=== PATIENT | male | born 1950 | race Caucasian/White ===

== ENCOUNTER 2024-02-19 11:51 | Emergency (ER) | payer MEDICARE, BC, SELFPAY ==
[2024-02-19 12:09] VITALS: BP 141/72; PULSE 60; RESP 20; TEMP 36.4; O2SAT 97; BMI 26.7
--- NOTE | 2024-02-19 12:31 | ED_ITS ---
HPI - Fall General Chief Complaint: Fall Stated Complaint: FALL, UPPER EXTRMITY INJURY RIGHT Time Seen by Provider: 02/19/24 12:31 Source: patient Mode of arrival: walk-in Limitations: no limitations History of Present Illness HPI Narrative: This patient is here with his for evaluation of a fall. He said he went outside to go to his vehicle and fell somewhere between the sidewalk and the brick house. He thinks he may have had a short loss of consciousness. He did get up on his own accord and walked back in. His 's and he has not been vomiting or acting confused or dazed in any way. He is on blood thinners, Eliquis, for atrial fibrillation. He has most of his discomfort is in the right shoulder and his neck area. He has not had previous neck or back surgery or shoulder surgery. No loss of feeling. No obvious deformity. He has minor abrasions to the rest extremities. We will inquire about his tetanus status. Related Data Allergies Allergy/AdvReac Type Severity Reaction Status Date / Time No Known Drug Allergies Allergy Verified 02/19/24 12:05 Exam Narrative Exam Narrative: Very pleasant gentleman here with his . He is awake alert [place] x 3. GCS is 15. He is not repeating himself there is no slurring of his words there is no confusion. On HEENT examination he has got palpable tenderness over the posterior paracervical spine but not the bony landmarks. We did not do any range of motion testing. His calvarium shows no evidence of bony injury lacerations or contusions. His TMs are normal bilaterally with no evidence of hemotympanum. There is no CSF rhinorrhea Whalen sign raccoon sign is negative. 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 Otherwise his eye examination is normal. There is no tenderness to the sternum the upper clavicles or the back area. He has no paresis paresthesias or tingling to the extremities. He has got extreme minor abrasions to the hands. No bony tenderness to the wrist or elbow only at the right shoulder was uncomfortable with any type of movement. There is no obvious deformity. Neurovascular examination to the upper and lower extremities is normal. Constitutional Vital Signs, click to edit/add: Last Vital Signs Temp 97.5 F L 02/19/24 12:09 Pulse 60 02/19/24 12:09 Resp 20 02/19/24 12:09 BP 141/72 02/19/24 12:09 Pulse Ox 97 02/19/24 12:09 O2 Del Method Room Air 02/19/24 12:09 Course Vital Signs Vital signs: Vital Signs Temperature 97.5 F L 02/19/24 12:09 Pulse Rate 60 02/19/24 12:09 Respiratory Rate 20 02/19/24 12:09 Blood Pressure 141/72 02/19/24 12:09 Pulse Oximetry 97 02/19/24 12:09 Oxygen Delivery Method Room Air 02/19/24 12:09 Temperature 97.5 F L 02/19/24 12:09 Pulse Rate 60 02/19/24 12:09 Respiratory Rate 20 02/19/24 12:09 Blood Pressure 141/72 02/19/24 12:09 Pulse Oximetry 97 02/19/24 12:09 Oxygen Delivery Method Room Air 02/19/24 12:09 MDM - Fall MDM Narrative Medical decision making narrative: Because he is on Eliquis and because the fall a CT scan of the head was done shows no acute abnormalities. His cervical spine CT imaging was also normal. Additionally, the x-ray of his right shoulder showed no bony abnormalities but he clearly has some soft tissue injury that will need to be followed up. Discharge Plan Discharge Stand Alone Forms: Portal Instructions Chief Complaint: Fall Clinical Impression: Acute cervical myofascial strain, Fall Patient Disposition: Home, Self-Care Time of Disposition Decision: 13:10 Print Language: Maltese Additional Instructions: Apply ice to any swollen bruised area. Return for any change in his condition. Wear sling for 2 or 3 days to the right shoulder and then have follow-up with primary care doctor or orthopedic Referrals: KEVEN REINOSO [Primary Care Provider] - 1 week
--- NOTE | 2024-02-19 12:32 | CT_ITS ---
The [place] [id number] Patient Name: MARYJANE LARA MRN: [facility]:[id number] date: 1950 Sex: M Assigned Patient Location: ER Current Patient Location: ED.MAIN Accession/Order Number: [id number] Exam Date: 02/19/2024 12:42 Report Date: 02/19/2024 14:21 At the request of: JUANA CASAREZ Procedure: CT cervical spine wo con CT CERVICAL SPINE WITHOUT CONTRAST, 02/19/2024. HISTORY: Fall. Neck pain. COMPARISON: None. TECHNIQUE: Noncontrast axial CT images obtained through the cervical spine. Reconstructions obtained in the sagittal and coronal planes. Dose reduction techniques were achieved by using automated exposure control and/or adjustment of mA and/or kV according to patient size and/or use of iterative reconstruction technique. FINDINGS: Alignment normal. Odontoid process is intact. The facet joints are intact. Vertebral body height is normal. No acute cervical spine fracture. No CT evidence of spinal cord compression. No paraspinal soft tissue swelling. No paraspinal mass. CT/CT cervical spine wo con IMPRESSION: No acute cervical spine fracture or traumatic subluxation. Electronically authenticated by: JUAN MEJIA Date: 02/19/2024 14:21
--- NOTE | 2024-02-19 12:32 | CT_ITS ---
The [address] [address] Patient Name: MARYJANE LARA MRN: [facility]:[id number] date: 1950 Sex: M Assigned Patient Location: ER Current Patient Location: [facility] Accession/Order Number: [id number] Exam Date: 02/19/2024 12:42 Report Date: 02/19/2024 14:21 At the request of: JUANA CASAREZ Procedure: CT head/brain wo con CT HEAD WITHOUT CONTRAST, 02/19/2024. HISTORY: Fall. Patient is on blood thinners. Head injury. COMPARISON: None. TECHNIQUE: Noncontrast axial CT images obtained through the head. Reconstructions obtained in the sagittal and coronal planes. Dose reduction techniques were achieved by using automated exposure control and/or adjustment of mA and/or kV according to patient size and/or use of iterative reconstruction technique. FINDINGS: The paranasal sinuses are clear. Mastoid air cells and middle ear cavities clear. No fracture. Prior cataract surgery. Extracranial soft tissue structures are unremarkable. No hydrocephalus. No extra axial fluid collection. No mass effect. No shift of midline. No acute intracranial hemorrhage. No masses. Mendosa matter and white matter differentiation is intact. CT/CT head/brain wo con IMPRESSION: No acute findings. No intracranial hemorrhage. No skull fracture. Electronically authenticated by: JUAN MEJIA Date: 02/19/2024 14:21
--- NOTE | 2024-02-19 12:33 | XR_ITS ---
The [place] [id number] Patient Name: MARYJANE LARA MRN: [facility]:[id number] date: 1950 Sex: M Assigned Patient Location: ER Current Patient Location: ER Accession/Order Number: [id number] Exam Date: 02/19/2024 12:42 Report Date: 02/19/2024 13:02 At the request of: JUANA CASAREZ Procedure: XR shoulder RT min 2V PROCEDURE: XR shoulder RT min 2V HISTORY: Fall ; right shoulder and neck pain after falling COMPARISON: None. FINDINGS: BONES:No fracture, dislocation, bone lesion. Narrowing of the acromioclavicular joint with small degenerative osteophytes. Unremarkable humeral head and glenoid. SOFT TISSUES:No visible soft tissue swelling. EFFUSION:None visible. OTHER: Negative. XR/XR shoulder RT min 2V IMPRESSION: 1. No acute bone abnormality. 2. Mild degenerative changes of the right shoulder. Electronically authenticated by: ROSARIO SALAZAR Date: 02/19/2024 13:02
[2024-02-19] MEDS: ADACEL DIPH,PERTUSS(ACELL),TET VAC/PF 0.5 ML ADULT SYRINGE IM (13:01)
== END 2024-02-19 13:26 | disposition home or self-care (01) ==
PROVIDERS: Emergency Provider Emergency Medicine Emergency Medical Services; Family Provider Family Medicine; PCP Family Medicine
DX: S16.1XXA Strain of muscle, fascia and tendon at neck level, initial encounter (principal); I48.91 Unspecified atrial fibrillation; Z79.01 Long term (current) use of anticoagulants; S60.519A Abrasion of unspecified hand, initial encounter; W18.39XA Other fall on same level, initial encounter; Z23 Encounter for immunization
CPT/HCPCS: 70450; 72125; 73030; 90471; 90715; 99285

== ENCOUNTER 2024-08-10 15:40 | Inpatient (IN) | payer MEDICARE, BC, SELFPAY ==
[2024-08-10] VITALS (14 sets, daily range): BP systolic 133–171; BP diastolic 71–99; PULSE 60–109; TEMP 36.4–36.7; O2SAT 93–98; BMI 26.7; BMI 26.4
--- NOTE | 2024-08-10 15:57 | ED_ITS ---
HPI HPI - General Adult General Chief complaint: Back Pain/Injury Stated complaint: BACK PAIN Time Seen by Provider: 08/10/24 15:56 Source: patient Mode of arrival: Wheelchair Limitations: no limitations History of Present Illness HPI narrative: Patient is a 74-year-old male who is presenting to the ER with chief complaint of pain to the right lower back above his right pelvis. Patient also has having some pain to the right hip. Patient also states that he has been having weakness to his right leg. Patient is been having a harder time walking, has been having symptoms possibly suggestive of right foot drop last few days. Patient states the pain to the right lower back and right hip started before the weakness, but the weakness has been persistent for the last 3 days and the pain will come and go only with twisting turning and lumbar flexion extension. No loss of urine or bowels in his parents. Patient has no strokelike history. Patient does take Eliquis. Patient does have multiple medications that he does take. Patient's is at bedside. Patient feels like his abdomen has been bloated in the last several days, no difficulty with diarrhea or constipation. Patient has had recent testing on his abdomen is well ordered by his PCP. Patient's PCP is Dr. Tan. 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 Patient also has been having intermittent headaches for the past 3 to 4 months. Patient states his headaches are different than his normal headache. He does not have a headache today. Patient states his headaches have been behind his right eye with pressure. Again, he does not have a headache today. All systems are negative except as noted/marked. All systems reviewed and otherwise negative. Nurses note and vital signs reviewed and patient is not hypoxic. General: The patient appears well and in no apparent distress. Patient is resting comfortably on cart. Patient is not toxic, lethargic, or listless Skin: Warm, dry, no pallor noted. There is no rash noted. No petechiae, purpura. Head: Normocephalic, atraumatic; patient has full range of motion of cervical spine no difficulty. No tenderness to palpation midline or paracervical. Eye: Normal conjunctiva, no drainage, EOMI. PERRL Ears, Nose, Mouth, and Throat: oral mucosa is moist. Nares patent. Mouth without vesicles. Cardiovascular: Regular Rate and Rhythm, no murmur, gallop, rub Respiratory: Patient is in no distress, no accessory muscle use, lungs are clear to auscultation, no wheezing, rales or rhonchi Back: Patient does have moderate tenderness palpation to the right SI joint, right lower paralumbar soft tissue, negative right piriformis muscle tenderness to palpation. Negative straight leg raising test on the right and left. No signs of saddle anesthesia or cauda equina. non-tender, no CVA tenderness bilaterally to percussion. No CT LS midline pain GI: no tenderness to palpation, no masses appreciated. No rebound, guarding, or rigidity noted. No distention Musculoskeletal: Patient has full range of motion of all of the extremities with notable weakness to the right lower extremity compared to the left. Patient has a mild pronator drift of the right leg compared to the left. Patient does have weakness with that is noticeably different compared to the left leg. Patient has decreased sensation to the right lower extremity as well distal from the right knee compared to left leg. Patient has no other sensation deficits. Normal dorsalis pedis pulse bilateral. Patient appears to have equal bilateral patellar and Achilles reflexes bilateral. Extension flexion of the right knee when patient is sitting on the side of the bed, no motor, sensory, or focal neurological deficits. I did have patient's stand up at the side of the bed, patient is having a harder time standing up on his tippy toes on the right leg compared to the left. Patient does have weaker plantar dorsiflexion on the right foot compared to left. Neurological: A&O x4, normal speech, NIH 2, decrease sensation to right lower extremity distal to the right knee of the right leg compared to left. Minimal pronator drift to right leg. Psychiatric: Cooperative Related Data Home Medications ?Medication ?Instructions ?Recorded ?Confirmed apixaban 5 mg tablet (Eliquis) mg 08/10/24 aspirin 81 mg capsule 81 mg PO DAILY 08/10/24 08/10/24 atogepant 60 mg tablet (Qulipta) 60 mg PO DAILY 08/10/24 08/10/24 galcanezumab-gnlm 120 mg/mL mg subcut 08/10/24 subcutaneous syringe (Emgality) olmesartan 40 mg tablet mg 08/10/24 oxcarbazepine 150 mg tablet mg 08/10/24 ropinirole 1 mg tablet mg 08/10/24 sumatriptan succinate 100 mg tablet mg PO 08/10/24 tamsulosin 0.4 mg capsule mg PO 08/10/24 ubrogepant 100 mg tablet (Ubrelvy) mg 08/10/24 Allergies Allergy/AdvReac Type Severity Reaction Status Date / Time No Known Drug Allergies Allergy Verified 08/10/24 15:52 Opioid HPI Opioid Management Most Recent Opioid Data: Last Pain Scale 8 08/10/24 20:05 PFSH PFSH Social History Little interest or pleasure in doing things: not at all Feeling down, depressed, or hopeless: not at all Exam Constitutional Vital Signs, click to edit/add: Last Vital Signs Temp 98.1 F 08/10/24 15:52 Pulse 70 08/10/24 19:31 Resp 20 08/10/24 19:31 BP 139/81 08/10/24 19:31 Pulse Ox 98 08/10/24 19:31 O2 Del Method Room Air 08/10/24 15:52 Course Vital Signs Vital signs: Vital Signs Temperature 98.1 F 08/10/24 15:52 Pulse Rate 91 H 08/10/24 15:52 Respiratory Rate 18 08/10/24 15:52 Blood Pressure 164/99 H 08/10/24 15:52 Pulse Oximetry 96 08/10/24 15:52 Oxygen Delivery Method Room Air 08/10/24 15:52 Temperature 98.1 F 08/10/24 15:52 Pulse Rate 70 08/10/24 19:31 Respiratory Rate 20 08/10/24 19:31 Blood Pressure 139/81 08/10/24 19:31 Pulse Oximetry 98 08/10/24 19:31 Oxygen Delivery Method Room Air 08/10/24 15:52 Medical Decision Making MDM Narrative Medical decision making narrative: Patient stated the pain to the right lower back, SI joint on the right, and right hip started before the weakness, but the weakness has been persistent for 3 days, the pain is coming going with movement. After shared decision making and lengthy conversation with patient and his , patient will pursue stroke workup, CT of the head along with lumbar sacral spine, and also be admitted to the hospital for further evaluation. Patient does take his Eliquis daily. CT of the brain, CT of the head neck showed no specific findings and no large vessel occlusion. CT of the lumbar sacral spine shows multiple abnormalities. 1700 I went back in to explain the workup and the process again to patient and his , explaining that the continuous right leg weakness is possible to be nerve related from the lower back, but also is stroke until proven otherwise as well. Education on performing CT of the brain of the head and lower lumbar sacral spine at this time because I do not have MRI capabilities at this time was discussed to patient and his , along with symptoms ongoing for the past 3 days. Patient's was initially confused after initial lengthy discussion of why we are performing a stroke workup. This was discussed again. They were very thankful and understand the workup in process and agree with it. 193 I have spoken to Dr Marcial, I presented patient's case, also recommending giving Decadron IV 10 mg. He is aware of the CT of the lumbar spine readings. Also aware of the stroke workup and the testing of the brain, CT of the head neck that was done as well. He agrees that patient should be transferred over to [facility] for reevaluation and additional workup. He stated the patient will need MRI of his lumbar sacral spine for further evaluation. He is aware of the decrease sensation distal to the right knee, and the difficulty with knee extension and flexion weakness in the right leg along with weakness to dorsal plantarflexion of the right leg and also difficulty standing up on his tippy toes with some possible foot drop to the right leg for the past few days. 193 we have spoken to the [facility] nursing solid waste facility supervisor, they do not have any beds available. Nursing solid waste facility supervisor was also aware that we had spoken to the neurosurgeon, Dr. Marcial, and that he was recommending patient being admitted to medicine with neurosurgeon consultation. Patient will be on a wait list and transfer tomorrow when a bed opens up. 194 I have spoken to Olivia nurse practitioner for the hospitalist group at [facility]. Patient presentation has been given to her initially before I spoken to the neurosurgeon at [facility]. She is aware of admission, need for MRI in the morning, need for transfer to the neurosurgery who is already accepted the patient in consultation, Dr. Marcial who was taking the phone calls per Dr. Erickson who is a neurosurgeon who performed surgery 2 years ago at [facility]. Olivia WHITMORE is accepting admission. She is aware of giving Decadron patient is also given something for pain as well prior to admission. Patient and are extremely thankful and happy with care. IMPRESSION: At L3-L4, a probable left foraminal disc protrusion superimposed on disc bulge results in moderate to severe stenosis of the left L4-5 neural foramen. At L4-L5, prior laminectomy. Moderate to severe stenosis of the left lateral recess secondary to disc bulge, facet hypertrophy and ligamentum flavum thickening. Moderate stenosis of L4-5 neural foramina secondary to slightly decreased disc height, discovertebral complex and mild facet hypertrophy. At L5-S1, mild left and severe right facet arthropathy with mild stenosis of L5-S1 neural foramina. Critical care time 35 minutes exclusive from separate billable procedures that were performed. The following was considered in the determination of critical care but not limited to the level of medical decision making, intensive cardiac and/or respiratory monitoring, frequent vital sign monitoring, evaluation of laboratory studies, evaluation of radiographic studies, oxygen monitoring, and constant monitoring and speaking to family at bedside Lab Data Labs: Lab Results 08/10/24 08/10/24 Range/Units 16:39 16:49 WBC 10.2 (4.0-11.0) 10^3/uL RBC 5.10 (4.70-6.10) 10^6/uL Hgb 15.5 (14.0-18.0) g/dL Hct 48.0 (42.0-54.0) % MCV 94.1 H (80.0-94.0) fL MCH 30.4 (25.9-34.0) pg MCHC 32.3 (29.9-35.2) g/dL RDW 14.4 (11.0-15.0) % Plt Count 285 (150-450) 10^3/uL MPV 10.3 (9.5-13.5) fL Neut % (Auto) 75.2 H (43.0-75.0) % Lymph % (Auto) 15.4 L (20.5-60.0) % Swain % (Auto) 7.5 (1.7-12.0) % Eos % (Auto) 1.4 (0.9-7.0) % Baso % (Auto) 0.3 (0.2-2.0) % Neut # (Auto) 7.7 H (1.4-6.5) 10^3/uL Lymph # (Auto) 1.6 (1.2-3.8) 10^3/uL Swain # (Auto) 0.8 (0.3-0.8) 10^3/uL Eos # (Auto) 0.1 (0.0-0.7) 10^3/uL Baso # (Auto) 0.0 (0.0-0.1) 10^3/uL Abs Immat Gran (auto) 0.02 (0.00-0.03) 10^3/uL Imm/Tot Granulo (auto) 0.2 (0.0-0.5) % PT 10.2 (9.0-11.6) sec INR 0.96 APTT 33.6 (22.3-36.2) sec Sodium 140 (136-145) mmol/L Potassium 3.5 (3.5-5.1) mmol/L Chloride 105 (98-107) mmol/L Carbon Dioxide 30.3 (21.0-32.0) mmol/L Anion Gap 8.2 BUN 23.0 H (7.0-18.0) mg/dL Creatinine 0.94 (0.70-1.30) mg/dL Est GFR ( Amer) >60 (>=60) Est GFR (Non-Af Amer) >60 (>=60) BUN/Creatinine Ratio 24.5 Glucose 111 H (74-106) mg/dL Calcium 9.6 (8.5-10.1) mg/dL Total Bilirubin 0.5 (0.2-1.0) mg/dL AST 28 (15-37) U/L ALT 37 (16-63) U/L Alkaline Phosphatase 99 (46-116) U/L Troponin I High Sens 15.5 (4.0-76.1) pg/mL Total Protein 7.1 (6.4-8.2) g/dL Albumin 3.7 (3.4-5.0) g/dL Globulin 3.4 g/dL Albumin/Globulin Ratio 1.1 POC Glucose 113 H (74-106) mg/dL ECG Data Attestation: I personally reviewed and interpreted this ECG as follows: (EKG interpretation. Normal sinus rhythm at 65 beats a minute. Left axis deviation. No acute ST elevation, no acute ectopy. QTc of 365.) Discharge Plan Discharge Chief Complaint: Back Pain/Injury Clinical Impression: Right leg weakness Patient Disposition: Admitted as Observation Time of Disposition Decision: 19:38 Condition: Serious
--- NOTE | 2024-08-10 16:32 | CT_ITS ---
[address] [address] Patient Name: MARYJANE LARA MRN: [facility]:[id number] date: 1950 Sex: M Assigned Patient Location: ER Current Patient Location: Accession/Order Number: [id number] Exam Date: 08/10/2024 17:15 Report Date: 08/10/2024 18:22 At the request of: HUSAM GODWIN Procedure: CT angio head EXAM: CT angio head, CT angio neck HISTORY: right leg weak COMPARISON: CT brain 08/10/2024, 02/19/2024 TECHNIQUE: Following IV administration of iodinated contrast, CTA imaging of the head and neck was performed. MPR and MIP images images were obtained. Carotid stenosis is based on NASCET criteria. Dose reduction techniques were achieved by using automated exposure control and/or adjustment of mA and/or kV according to patient size and/or use of iterative reconstruction technique. FINDINGS: CTA OF THE HEAD: No major branch occlusion or significant intracranial stenosis. No aneurysm or dissection. The visualized venous structures are patent, without evidence of stenosis or filling defect. There are no abnormal parenchymal or leptomeningeal enhancement. CTA OF THE NECK: Aortic arch demonstrate no aneurysm. The great vessels of the aortic arch show no significant stenosis. There are mild atherosclerotic calcifications at the aortic arch, visualized descending aorta, bilateral proximal subclavian artery and bilateral common carotid bifurcations without significant stenosis. The vertebral arteries show no evidence of stenosis, occlusion, aneurysm or dissection. Common carotids and internal carotids show no significant stenosis or dissection. No abnormal soft tissue mass in the neck. Osseous structures are intact. CT/CT angio head IMPRESSION: No significant stenosis, large vessel occlusion, aneurysm or dissection involving the neck or intracranial arterial vasculature. Electronically authenticated by: PEGGY GONZALEZU Date: 08/10/2024 18:22
--- NOTE | 2024-08-10 16:32 | CT_ITS ---
[place] [id number] Patient Name: MARYJANE LARA MRN: [facility]:[id number] date: 1950 Sex: M Assigned Patient Location: ER Current Patient Location: ER Accession/Order Number: [id number] Exam Date: 08/10/2024 17:15 Report Date: 08/10/2024 18:20 At the request of: HUSAM GODWIN Procedure: CT lumbar spine wo con EXAM: CT lumbar spine wo con HISTORY: right leg weakness. COMPARISON: None. TECHNIQUE: Axial CT scans of the lumbar spine were obtained without contrast administration. MPR images were obtained. FINDINGS: At L1-L2, mild anterior discovertebral complex. At L2-L3, mild posterior disc bulge. At L3-L4, probable left foraminal disc protrusion superimposed on disc bulge results in moderate to severe stenosis of the left L4-5 neural foramen. At L4-L5, prior laminectomy. Moderate to severe stenosis of the left lateral recess secondary to disc bulge, facet hypertrophy and ligamentum flavum thickening. Moderate stenosis of L4-5 neural foramina secondary to slightly decreased disc height, discovertebral complex and mild facet hypertrophy. At L5-S1, mild left and severe right facet arthropathy with mild stenosis of L5-S1 neural foramina. No spondylolysis or spondylolisthesis. No destructive bony lesions. SI joints are intact. A 6 mm bone island in the anterior aspect of L1 vertebral body. Some atrophy of the posterior paraspinal muscles caudal to L4 level is present. The visualized retroperitoneum shows no adenopathy. CT/CT lumbar spine wo con IMPRESSION: At L3-L4, a probable left foraminal disc protrusion superimposed on disc bulge results in moderate to severe stenosis of the left L4-5 neural foramen. At L4-L5, prior laminectomy. Moderate to severe stenosis of the left lateral recess secondary to disc bulge, facet hypertrophy and ligamentum flavum thickening. Moderate stenosis of L4-5 neural foramina secondary to slightly decreased disc height, discovertebral complex and mild facet hypertrophy. At L5-S1, mild left and severe right facet arthropathy with mild stenosis of L5-S1 neural foramina. Electronically authenticated by: JEF MARTELL Date: 08/10/2024 18:20
--- NOTE | 2024-08-10 16:32 | ECG_ITS ---
The [facility] Test Date: 2024-08-10 Pat Name: MARYJANE LARA Department: Room: - Gender: Male Senior Data Developer: : 1950 Requested By: Order Number: [id number] Reading MD: CAPO RAMIREZ Measurements Intervals [place] Rate: 65 P: 77 IN: 164 QRS: -52 QRSD: 110 T: 66 QT: 354 QTc: 365 Interpretive Statements 1100 Sinus rhythm 1470 with occasional supraventricular premature complexes 2630 Left anterior fascicular block 4068 Nonspecific Twave abnormality 8003 Consistent with pulmonary disease 9150 abnormal ECG Electronically Signed On 08-10-2024 23:13:07 EDT by CAPO RAMIREZ
--- NOTE | 2024-08-10 16:32 | CT_ITS ---
[address] [address] Patient Name: MARYJANE LARA MRN: [id number] date: 1950 Sex: M Assigned Patient Location: ER Current Patient Location: Accession/Order Number: [id number] Exam Date: 08/10/2024 17:15 Report Date: 08/10/2024 18:22 At the request of: HUSAM GODWIN Procedure: CT angio neck EXAM: CT angio head, CT angio neck HISTORY: right leg weak COMPARISON: CT brain 08/10/2024, 02/19/2024 TECHNIQUE: Following IV administration of iodinated contrast, CTA imaging of the head and neck was performed. MPR and MIP images images were obtained. Carotid stenosis is based on NASCET criteria. Dose reduction techniques were achieved by using automated exposure control and/or adjustment of mA and/or kV according to patient size and/or use of iterative reconstruction technique. FINDINGS: CTA OF THE HEAD: No major branch occlusion or significant intracranial stenosis. No aneurysm or dissection. The visualized venous structures are patent, without evidence of stenosis or filling defect. There are no abnormal parenchymal or leptomeningeal enhancement. CTA OF THE NECK: Aortic arch demonstrate no aneurysm. The great vessels of the aortic arch show no significant stenosis. There are mild atherosclerotic calcifications at the aortic arch, visualized descending aorta, bilateral proximal subclavian artery and bilateral common carotid bifurcations without significant stenosis. The vertebral arteries show no evidence of stenosis, occlusion, aneurysm or dissection. Common carotids and internal carotids show no significant stenosis or dissection. No abnormal soft tissue mass in the neck. Osseous structures are intact. CT/CT angio neck IMPRESSION: No significant stenosis, large vessel occlusion, aneurysm or dissection involving the neck or intracranial arterial vasculature. Electronically authenticated by: PEGGY GONZALEZU Date: 08/10/2024 18:22
--- NOTE | 2024-08-10 16:33 | CT_ITS ---
The [address] [address] Patient Name: MARYJANE LARA MRN: [facility]:[id number] date: 1950 Sex: M Assigned Patient Location: ER Current Patient Location: ER Accession/Order Number: [id number] Exam Date: 08/10/2024 17:05 Report Date: 08/10/2024 17:51 At the request of: HUSAM GODWIN Procedure: CT stroke head/brain wo con EXAM: CT stroke head/brain wo con HISTORY: right leg weak COMPARISON: 02/19/2024. TECHNIQUE: Unenhanced transaxial tomographic sections obtained from the vertex through the posterior fossa. FINDINGS: No midline shift, mass effect or intracranial hemorrhage are identified. The mastoid air cells and visualized paranasal sinuses are clear. CT/CT stroke head/brain wo con IMPRESSION: No acute intracranial process is identified. Electronically authenticated by: GAVI VERA Date: 08/10/2024 17:51
[2024-08-10 16:40] LABS: Glucometer 113 mg/dL (74-106)
[2024-08-10 17:01] LABS: Basophils Percent Auto 0.3 % (0.2-2.0); Eosinophils Absolute Auto 0.1 10^3/uL (0.0-0.7); Eosinophils Percent Auto 1.4 % (0.9-7.0); Hemoglobin 15.5 g/dL (14.0-18.0); Immature Granulocytes Abs Auto 0.02 10^3/uL (0.00-0.03); Immature Granulocytes Pct Auto 0.2 % (0.0-0.5); Lymphocytes Absolute Auto 1.6 10^3/uL (1.2-3.8); Lymphocytes Percent Auto 15.4 % (20.5-60.0); Mean Corpuscular HGB Conc 32.3 g/dL (29.9-35.2); Mean Corpuscular Hemoglobin 30.4 pg (25.9-34.0); Mean Corpuscular Volume 94.1 fL (80.0-94.0); Mean Platelet Volume 10.3 fL (9.5-13.5); Monocytes Absolute Auto 0.8 10^3/uL (0.3-0.8); Monocytes Percent Auto 7.5 % (1.7-12.0); Neutrophils Absolute Auto 7.7 10^3/uL (1.4-6.5); Neutrophils Percent Auto 75.2 % (43.0-75.0); Platelet Count 285 10^3/uL (150-450); Red Cell Distribution Width 14.4 % (11.0-15.0); White Blood Count 10.2 10^3/uL (4.0-11.0)
[2024-08-10 17:21] LABS: INR 0.96; Partial Thromboplastin Time 33.6 sec (22.3-36.2); Prothrombin Time 10.2 sec (9.0-11.6)
[2024-08-10 17:33] LABS: Alanine Aminotransferase 37 U/L (16-63); Albumin Globulin Ratio 1.1; Albumin Level 3.7 g/dL (3.4-5.0); Alkaline Phosphatase 99 U/L (46-116); Anion Gap 8.2; Aspartate Amino Transferase 28 U/L (15-37); BUN Creatinine Ratio 24.5; Bilirubin Total 0.5 mg/dL (0.2-1.0); Calcium 9.6 mg/dL (8.5-10.1); Carbon Dioxide 30.3 mmol/L (21.0-32.0); Chloride 105 mmol/L (98-107); Estimated GFR (African America >60 (>=60); Estimated GFR (Non-African Ame >60 (>=60); Globulin 3.4 g/dL; Glucose 111 mg/dL (74-106); Potassium 3.5 mmol/L (3.5-5.1); Sodium 140 mmol/L (136-145); Total Protein 7.1 g/dL (6.4-8.2); Troponin I High Sensitivity 15.5 pg/mL (4.0-76.1)
[2024-08-10] MEDS: DEXAMETHASONE SOD PHOS 10 MG/ML VIAL IV (19:46)
[2024-08-10] MEDS: MORPHINE SULFATE 4 MG/ML VIAL IV (20:05)
[2024-08-10] MEDS: METHOCARBAMOL 500 MG TABLET PO (21:08)
[2024-08-10] MEDS: ACETAMINOPHEN 325 MG TABLET 650 MG PO (21:08)
[2024-08-10] MEDS: ROPINIROLE HCL 1 MG TABLET PO (23:31)
[2024-08-10] MEDS: APIXABAN 5 MG TABLET PO (23:31)
[2024-08-10] MEDS: TAMSULOSIN HCL 0.4 MG CAPSULE PO (23:31)
[2024-08-10] MEDS: ASPIRIN 81 MG TABLET.DR PO (23:45)
[2024-08-10] MEDS: LOSARTAN POTASSIUM 25 MG TABLET 75 MG PO (23:45)
[2024-08-10] MEDS: OXcarbazepine 150 MG TABLET PO (23:54)
[2024-08-11] MEDS: MORPHINE SULFATE 4 MG/ML VIAL IV ×2 (00:54→06:30)
[2024-08-11 04:00] VITALS: BP 143/90; PULSE 78; TEMP 36.6; O2SAT 93
[2024-08-11] MEDS: SUMATRIPTAN SUCCINATE 50 MG TABLET 100 MG PO ×2 (05:42→09:37)
[2024-08-11 06:05] LABS: Hematocrit 43.2 % (42.0-54.0); Hemoglobin 14.2 g/dL (14.0-18.0); Mean Corpuscular HGB Conc 32.9 g/dL (29.9-35.2); Mean Corpuscular Hemoglobin 30.5 pg (25.9-34.0); Mean Corpuscular Volume 92.9 fL (80.0-94.0); Mean Platelet Volume 10.4 fL (9.5-13.5); Platelet Count 286 10^3/uL (150-450); Red Blood Count 4.65 10^6/uL (4.70-6.10); Red Cell Distribution Width 14.3 % (11.0-15.0); White Blood Count 8.4 10^3/uL (4.0-11.0)
[2024-08-11 06:20] LABS: Anion Gap 12.7; BUN Creatinine Ratio 30.9; Calcium 9.8 mg/dL (8.5-10.1); Carbon Dioxide 25.7 mmol/L (21.0-32.0); Chloride 108 mmol/L (98-107); Estimated GFR (African America >60 (>=60); Estimated GFR (Non-African Ame >60 (>=60); Glucose 139 mg/dL (74-106); Potassium 4.4 mmol/L (3.5-5.1); Sodium 142 mmol/L (136-145)
--- NOTE | 2024-08-11 07:00 | MR_ITS ---
The [address] [address] Patient Name: MARYJANE LARA MRN: [facility]:[id number] date: 1950 Sex: M Assigned Patient Location: MS Current Patient Location: MS Accession/Order Number: [id number] Exam Date: 08/11/2024 11:15 Report Date: 08/11/2024 14:05 At the request of: IVAN BANKS Procedure: MR lumbar spine wo/w con EXAM: MR lumbar spine wo/w con REASON FOR EXAM: Right leg weakness. TECHNIQUE: Multiplanar, multisequence imaging of the lumbar spine was performed before and after the uneventful intravenous administration of gadolinium contrast COMPARISON: CT scan 08/10/2024. FINDINGS: 5 nonrib-bearing lumbar vertebrae. Straightening normal lumbar lordosis without listhesis. Vertebral body heights are maintained. There are surgical changes from laminectomy at the L4-L5 level. No acute or aggressive osseous abnormality is evident. The visualized bony pelvis appears congruent with mild to moderate osteoarthritis of the sacroiliac joints with joint space narrowing marginal osteophytes. Limited evaluation of the abdominopelvic viscera is without acute or suspicious abnormality. L1-L2: Mild broad-based disc bulge without spinal canal stenosis. No neural foraminal stenosis. L2-L3: Mild broad-based disc bulge with flattening of the ventral thecal sac. Mild spinal canal and right lateral recess stenosis. Mild bilateral neural foraminal stenosis secondary to disc osteophyte complex and facet arthropathy. L3-L4: Broad-based disc bulge with mild spinal canal lateral recess stenosis, left greater than right. There is more focal broad-based left lateral protrusion. Moderate bilateral neural foraminal stenosis, left greater than right secondary to disc osteophyte complex and facet arthropathy. L4-L5: Diffuse broad-based disc bulge without spinal canal stenosis. Mild left lateral recess stenosis. Severe bilateral neural foraminal stenosis secondary to disc osteophyte complex and facet arthropathy. L5-S1: Broad-based disc bulge without spinal canal or lateral recess stenosis. Moderate bilateral neural foraminal stenosis secondary to disc osteophyte complex and facet arthropathy. MR/MR lumbar spine wo/w con IMPRESSION: 1. Mild to moderate multilevel degenerative disc disease and facet arthropathy, most significant at the L4-L5 and L5-S1 levels as described above. Electronically authenticated by: BETHANY LIN Date: 08/11/2024 14:05
--- NOTE | 2024-08-11 07:00 | MR_ITS ---
The [place] [id number] Patient Name: MARYJANE LARA MRN: [facility]:[id number] date: 1950 Sex: M Assigned Patient Location: MS Current Patient Location: MS Accession/Order Number: [id number] Exam Date: 08/11/2024 11:30 Report Date: 08/11/2024 15:13 At the request of: IVAN BANKS Procedure: MR head/brain wo con EXAM: MR head/brain wo con HISTORY: Right leg weakness COMPARISON: CT brain 08/10/2024 TECHNIQUE: MRI of the brain was performed without contrast. FINDINGS: There is no restricted diffusion to suggest acute infarct. There is no midline shift, mass effect, or abnormal extraaxial fluid collections. There is mild cerebral volume loss. There are a few nonspecific scattered foci of T2/FLAIR signal abnormality in the subcortical and periventricular white matter, likely reflect chronic microvascular ischemic changes. The major intracranial flow voids are visualized. The cerebellar tonsils are normal in position. The orbits are unremarkable. The paranasal sinuses show no air-fluid level. The mastoid air cells are clear. The calvarium and extracranial soft tissues are unremarkable. MR/MR head/brain wo con IMPRESSION: No acute intracranial abnormality. Mild chronic microvascular ischemic and involutional changes. Electronically authenticated by: PEGGY YEE Date: 08/11/2024 15:13
[2024-08-11 08:17] VITALS: BP 154/96; PULSE 92; TEMP 36.8; O2SAT 94
--- NOTE | 2024-08-11 08:21 | PM.HP ---
HPI H&P: HPI History of Present Illness Chief complaint: BACK PAIN, R LEG WEAKNESS Narrative: Patient is a 74 year old male with past medical history of HTN, Chronic Migraine headaches, BPH, bladder cancer hx, and Afib (on Eliquis) who presented to the ER last night with increased right lower extremity weakness for the last 3 days. He had been experiencing right low back pain radiating into right hip and down right leg to above the knee when it became more difficult for him to function on that right leg and became weak like it would not work. He denies any loss of bowel or bladder. He has a history of Laminectomy at [facility], Dr. Erickson about 2 years ago. Per ER physician notes, they discussed case with Dr. Marcial neurosurgery who recommended transfer to [facility] for NS evaluation. We are awaiting a bed. He notes that he has to pull his right leg to get his pants on and to move it. He has a walker at home that he uses sometimes to aid with balance. The pain has been present 4-5 days but the right lower ext weakness 3 days present. He denies any upper arm weakness, any confusion or speech issues. No personal history of stroke. He does have Afib. No recent trauma to the right hip or back. He has been compliant with medications. He sees [facility] for Cardiology and Dr. Peng for Neurology. ER findings: CTA of the head and neck: no evidence of stenosis or acute infarctions: CT of the lumbar spine: L3/L4 disc protrusion, severe stenosis, L4/L5 prior laminectomy with severe stenosis, L5/S1 severe right facet arthropathy; CBC normal, Coags normal, BMP normal; Patient was given a shot of Decadron 10mg x 1 Opioid HPI Opioid Management Most Recent Pain and Opioid Data: Last Pain Scale 10 08/11/24 09:39 Last Pain Assessment 08/11/24 10:21 Last MAR Pain Assessment 08/11/24 08:08 Last ORT Total Score 0 08/10/24 20:34 Last ORT Risk Category Low Risk 08/10/24 20:34 Review of Systems ROS Narrative ROS: a complete review of systems were reviewed with patient and are positive as below or listed in History of Chief Complaint. General: no fever, chills, night sweats Head:headache, , visual changes left eye, no nausea or vomiting, no trauma Skin: no reported rashes, itching or sores Eyes:blurriness of vision sometimes left eye with migraines and right eye floaters at times Ears: no reported hearing loss, vertigo, earache, or tinnitus Throat: no sore throat, hoarseness, swelling of neck, or tongue pain Heart: no chest pain Lungs: no shortness of breath or cough GI: no diarrhea or vomiting/nausea Urinary: no urinary urgency, frequency or pain Neuro: numbness or tingling right leg and foot HEM: no bleeding issues or bruising ENDO: no thyroid problems Psych: no anxiety or depression [facility] Medical History (Updated 08/11/24 @ 10:44 by Lizz Poole DO) Primary hypertension ?I10 - Essential (primary) hypertension (ICD-10) Cataract (lens) fragments in eye following cataract surgery, bilateral ?H59.023 - Cataract (lens) fragments in eye following cataract surgery, bilateral (ICD-10) Bladder cancer ?C67.9 - Malignant neoplasm of bladder, unspecified (ICD-10) Migraine ?G43.909 - Migraine, unspecified, not intractable, without status migrainosus (ICD-10) Afib ?I48.91 - Unspecified atrial fibrillation (ICD-10) Surgical History History of bladder surgery ?Z98.890 - Other specified postprocedural states (ICD-10) History of back surgery ?Z98.890 - Other specified postprocedural states (ICD-10) Social History Highest level of school completed/degree received: high school graduate Little interest or pleasure in doing things: not at all Feeling down, depressed, or hopeless: not at all Meds Home Medications and Allergies Home Medications ?Medication ?Instructions ?Recorded ?Confirmed ?Type apixaban 5 mg tablet (Eliquis) 5 mg PO BID 08/10/24 08/10/24 History aspirin 81 mg capsule 81 mg PO DAILY 08/10/24 08/10/24 History atogepant 60 mg tablet (Qulipta) 60 mg PO DAILY 08/10/24 08/10/24 History galcanezumab-gnlm 120 mg/mL mg subcut 08/10/24 History subcutaneous syringe (Emgality) olmesartan 40 mg tablet 40 mg PO BID 08/10/24 08/10/24 History oxcarbazepine 150 mg tablet 150 mg PO BID 08/10/24 08/10/24 History ropinirole 1 mg tablet 1 mg PO .hs 08/10/24 08/10/24 History sumatriptan succinate 100 mg tablet 100 mg PO BID PRN migraine headache 08/10/24 08/10/24 History tamsulosin 0.4 mg capsule 0.4 mg PO .hs 08/10/24 08/10/24 History ubrogepant 100 mg tablet (Ubrelvy) mg 08/10/24 History Allergies Allergy/AdvReac Type Severity Reaction Status Date / Time No Known Drug Allergies Allergy Verified 08/10/24 15:52 Exam Narrative Exam Narrative: General: Patient is alert, and oriented to person, place and time with normal affect, proper hygiene Skin: no visible rashes, or ulcers Head: atraumatic, acephalic Eyes: PERRLA, no nystagmus present, conjunctiva clear, no scleral icterus Ears: normal gross auditory acuity Nose: symmetric, no discharge, no maxillary or frontal sinus tenderness Neck: no masses palpated, normal thyroid Heart: Normal rate and rhythm, no murmurs/rubs/gallops Lungs: no audible wheezes, crackles and normal breath sounds all lung velez Abdomen: Normal audible bowel sounds, mild distension, No palpable masses, no organomegaly, no rebound/guarding/ or rigidity Musculoskeletal: no swelling bilateral lower extremities Neuro: CN II-X grossly intact, normal strength bilateral upper extremities; decreased strength right lower ext 4/5, pain elicited in the right lower back, decreased sensation of the lateral right leg and right thigh compared to left leg; positive straight leg test Constitutional Vital Signs, click to edit/add: Last Vital Signs Temp 98.2 F 08/11/24 08:17 Pulse 92 H 08/11/24 08:17 Resp 16 08/11/24 08:18 BP 154/96 H 08/11/24 08:17 Pulse Ox 94 L 08/11/24 08:17 O2 Del Method Room Air 08/11/24 08:17 Results Labs Labs: Short CBC 08/10/24 08/11/24 Range/Units 16:49 05:30 WBC 10.2 8.4 (4.0-11.0) 10^3/uL Hgb 15.5 14.2 (14.0-18.0) g/dL Hct 48.0 43.2 (42.0-54.0) % Plt Count 285 286 (150-450) 10^3/uL BMP 08/10/24 08/11/24 16:49 05:30 Sodium 140 142 Potassium 3.5 4.4 Chloride 105 108 H Carbon Dioxide 30.3 25.7 BUN 23.0 H 25.0 H Creatinine 0.94 0.81 Glucose 111 H 139 H Calcium 9.6 9.8 Liver Function 08/10/24 Range/Units 16:49 Total Bilirubin 0.5 (0.2-1.0) mg/dL AST 28 (15-37) U/L ALT 37 (16-63) U/L Alkaline Phosphatase 99 (46-116) U/L Albumin 3.7 (3.4-5.0) g/dL Assessment and Plan Assessment and Plan (1) Lumbar disc prolapse with compression radiculopathy: Assessment and Plan: plan for MRI today, pain control with morphine, given decadron. Hopeful transfer to [facility] for Neurosurgery evaluation. CT showed severe stenosis with disc protrusion, PT/OT evaluation after MRI. (2) Intractable back pain: Assessment and Plan: continue pain control with IV morphine for now, Given Decadron 10mg IV x 1 in ER (3) Spinal stenosis, lumbar region, with neurogenic claudication: (4) Right leg weakness: (5) Uncontrolled hypertension: Assessment and Plan: Patient takes olmesartan daily, will add propranolol given HR 80's but BP 150/100's and may also help with migraine headaches. (6) Migraine: Assessment and Plan: continue home meds, CTA of the head and neck did not show any stenosis, aneurysms or acute stroke. Migraine seems chronic in nature. Recently started on EMgality injections. Sees neurology for this. Will add propranolol. MRI of the brain today but low suspicion that weakness and headache related to acute CVA symptoms. Qualifiers: Intractability: not intractable Migraine type: ophthalmoplegic Qualified Code(s): G43.B0 - Ophthalmoplegic migraine, not intractable (7) Afib: Qualifiers: Atrial fibrillation type: paroxysmal Qualified Code(s): I48.0 - Paroxysmal atrial fibrillation (8) Bladder cancer: Qualifiers: Bladder location: unspecified site Qualified Code(s): C67.9 - Malignant neoplasm of bladder, unspecified (9) Uncontrolled hypersomnia: Plan Patient is a full code Continue Eliquis for DVT prophylaxis Patient will get MRI's today, Hopeful transfer to [facility] for Neurosurgical evaluation once bed available, continue with pain control. Patient made inpatient status and is expected to cross 2 midnights.
[2024-08-11 09:03] LABS: Cholesterol 186 mg/dL (<=200); HDL Cholesterol 61 mg/dL (40-60); Thyroid Stimulating Hormone 0.471 uIU/mL (0.358-3.740); Triglycerides 25 mg/dL (<=150)
[2024-08-11 09:16] LABS: Estimated Average Glucose 111 mg/dL; Glycohemoglobin A1C 5.5 % (4.5-6.2)
[2024-08-11 09:29] VITALS: BP 152/101; PULSE 79; TEMP 36.5; O2SAT 98
[2024-08-11] MEDS: OXcarbazepine 150 MG TABLET PO (09:37)
[2024-08-11] MEDS: APIXABAN 5 MG TABLET PO (09:37)
[2024-08-11] MEDS: ASPIRIN 81 MG TABLET.DR PO (09:37)
[2024-08-11] MEDS: LOSARTAN POTASSIUM 25 MG TABLET 75 MG PO (09:37)
--- NOTE | 2024-08-11 10:06 | CM.NOTE ---
Important Message From Medicare discussed with pt, pt verbalizes understanding and signs paper. Original given to pt and copy placed in pt's chart.
--- NOTE | 2024-08-11 10:12 | CM.NOTE ---
Rounds made with Dr. Poole, discussed with pt about MRI brain today and Lumbar spine. Pt on waiting list for transfer to [facility]. Awaiting MRI results for further plan of care.
[2024-08-11 11:19] VITALS: BP 143/94; PULSE 72; TEMP 36.6; O2SAT 96
[2024-08-11] MEDS: ACETAMINOPHEN 325 MG TABLET 650 MG PO (11:23)
[2024-08-11] MEDS: PROPRANOLOL HCL 20 MG TABLET PO (11:23)
--- NOTE | 2024-08-11 15:17 | PM.DS1 ---
DS: Providers Provider Date of admission: 08/11/24 10:09 Primary care physician: KEVEN REINOSO Attending physician on admission: Sarah Lim Consults: 08/11/24 08:10 Occupational Therapy Eval and Treat Routine Reason for consultation: right leg weakness and foot drop Has provider been notified: No Physical Therapy Eval and Treat Routine Reason for consultation: right leg weakness Has provider been notified: No Discharging clinician: Lziz Poole DS: Diagnosis Discharge Diagnosis (1) Lumbar disc prolapse with compression radiculopathy: (2) Intractable back pain: (3) Spinal stenosis, lumbar region, with neurogenic claudication: (4) Right leg weakness: (5) Uncontrolled hypertension: (6) Migraine: Qualifiers: Intractability: not intractable Migraine type: ophthalmoplegic Qualified Code(s): G43.B0 - Ophthalmoplegic migraine, not intractable (7) Afib: Qualifiers: Atrial fibrillation type: paroxysmal Qualified Code(s): I48.0 - Paroxysmal atrial fibrillation (8) Bladder cancer: Qualifiers: Bladder location: unspecified site Qualified Code(s): C67.9 - Malignant neoplasm of bladder, unspecified DS: Summary Hospital Course Hospital Course: Please see H&P from 08/11/24; Patient had MRI of the brain and lumbar spine. I have spoke with neurosurgeon Dr. Marcial at [facility] and updated physician about no status change but MRI results. We have made disc for MRI to take with him as well as had images pushed through PAC's system. Patient's pain is controlled while laying down, resting comfortably in bed at the time of discharge. I have added propranolol for elevated blood pressure. He did have his Eliquis this morning at 9am. Headache has improved. His was present in the room as well and they are comfortable with plan and transfer to [facility] for Neurosurgery evaluation. Status at Discharge Functional status at discharge: uses cane/walker Overall status at discharge: patient is not back to baseline Time Spent with Patient Time attestation: Total time spent providing and/or coordinating discharge services: Time spent: greater than 30 minutes Exam Narrative Exam Narrative: no change in exam from H&P admission exam dated 08/11/24 Constitutional Vital Signs, click to edit/add: Last Vital Signs Temp 97.8 F 08/11/24 11:19 Pulse 72 09/17/24 11:19 Resp 16 08/11/24 11:19 BP 143/94 H 08/11/24 11:19 Pulse Ox 96 08/11/24 11:19 O2 Del Method Room Air 08/11/24 11:19 DS: Data Data Completed and Pending Labs on day of discharge: Labs from last 24 hours 08/11/24 08/10/24 08/10/24 05:30 16:49 16:39 WBC 8.4 10.2 RBC 4.65 L 5.10 Hgb 14.2 15.5 Hct 43.2 48.0 MCV 92.9 94.1 H MCH 30.5 30.4 MCHC 32.9 32.3 RDW 14.3 14.4 Plt Count 286 285 MPV 10.4 10.3 Neut % (Auto) 75.2 H Lymph % (Auto) 15.4 L [place] % (Auto) 7.5 Eos % (Auto) 1.4 Baso % (Auto) 0.3 Neut # (Auto) 7.7 H Lymph # (Auto) 1.6 [place] # (Auto) 0.8 Eos # (Auto) 0.1 Baso # (Auto) 0.0 Abs Immat Gran (auto) 0.02 Imm/Tot Granulo (auto) 0.2 PT 10.2 INR 0.96 APTT 33.6 Sodium 142 140 Potassium 4.4 3.5 Chloride 108 H 105 Carbon Dioxide 25.7 30.3 Anion Gap 12.7 8.2 BUN 25.0 H 23.0 H Creatinine 0.81 0.94 Est GFR ( Amer) >60 >60 Est GFR (Non-Af Amer) >60 >60 BUN/Creatinine Ratio 30.9 24.5 Glucose 139 H 111 H Estimat Average Glucose 111 Hemoglobin A1c 5.5 Calcium 9.8 9.6 Total Bilirubin 0.5 AST 28 ALT 37 Alkaline Phosphatase 99 Troponin I High Sens 15.5 Total Protein 7.1 Albumin 3.7 Globulin 3.4 Albumin/Globulin Ratio 1.1 Triglycerides 25 Cholesterol 186 LDL Cholesterol, Calc 120.0 VLDL Cholesterol 5.0 HDL Cholesterol 61 H Cholesterol/HDL Ratio 3.0 TSH 0.471 POC Glucose 113 H Discharge Plan Discharge Disposition: [facility] Condition: Serious Discharge location: [facility]
[2024-08-11 15:23] VITALS: BP 159/82; PULSE 75; TEMP 36.4; O2SAT 93
--- NOTE | 2024-08-11 15:53 | PC.NURSE ---
report called to [employer] at this time. 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
== END 2024-08-11 16:55 | disposition short-term general hospital (02) | DRG 552 ==
LOC: ER 19:38 → MS 20:15
PROVIDERS: Registered Nurse; Admitting Provider Family Medicine; Emergency Provider Emergency Medicine; Family Provider Family Medicine; PCP Family Medicine; Visit Provider Family Medicine
DX: M51.16 Intervertebral disc disorders with radiculopathy, lumbar region (principal); M48.062 Spinal stenosis, lumbar region with neurogenic claudication; I10 Essential (primary) hypertension; R53.1 Weakness; I48.0 Paroxysmal atrial fibrillation; G43.B0 Ophthalmoplegic migraine, not intractable; Z79.01 Long term (current) use of anticoagulants; C67.9 Malignant neoplasm of bladder, unspecified; M54.89 Other dorsalgia
CPT/HCPCS: 36415; 70450; 70496; 70498; 70551; 72131; 72158; 80048; 80053; 80061; 83036; 84443; 84484; 85025; 85027; 85610; 85730; 93005; 96374; 96375; 96376; 97165; 97535; 99285; A9575; G0378; J1100; J2270; Q9967